=== PATIENT | female | born 1960 | race Two or more races ===

== ENCOUNTER 2021-10-05 12:21 | Emergency (ER) | payer OTHER ==
[~2021-10-05] VITALS: Ht 162.6 cm; Wt 79.4 kg
[2021-10-05] MEDS ORDERED: LOSARTAN-HCTZ1 EAC1 PO (12:47)
== END 2021-10-05 15:07 | disposition home or self-care (01) ==
LOC: ER 12:21
DX: U07.1 COVID-19 (principal); I10 Essential (primary) hypertension